=== PATIENT | female | born 1975 | race Caucasian/White ===

== ENCOUNTER 2021-12-15 17:37 | Emergency (ER) | payer OTHER ==
[~2021-12-15] VITALS: Ht 182.9 cm; Wt 135.1 kg
--- NOTE | 2021-12-15 19:22 | PHYS DOC ---
Past History Additional Past Medical Histor: vitamin deficiencies (DAWOOD DE JESUS APRN) Past Surgical History: Cholecystectomy, Hysterectomy, Tonsillectomy, Other Additional Past Surgical Histo: gastric sleeve, 2 (DAWOOD DE JESUS APRN) Alcohol Use: Rarely (DAWOOD DE JESUS APRN) General Adult EDM: Chief Complaint: LOWER EXT PAIN HPI: HPI: Patient is a 46-year-old female who presents to the emergency department today for bilateral burning in her feet and tingling. Patient reports that occasionally her toes will turn purple and it is worse when her feet are in the dependent position. Patient showed me a picture of her toes that were purple at home after she was sitting on them. Patient reports that she has a history of vitamin B12 and vitamin D deficiencies and receives injections. She reports that she receives her injections every 2 weeks but she notices that her symptoms of the burning sensations in her feet start after 1 week after her injections. She states that her primary care provider informed her that she could be experiencing the burning feet due to her B12 deficiency or she may have an autoimmune disorder like Raynaud's and she is currently being worked up by her primary care provider for Raynaud's. Patient presents to the emergency department requesting a B12 injection. Patient denies any decreased sensation in her extremities, chest pain, unilateral leg swelling, shortness of breath. (DAWOOD DE JESUS APRN) HPI: Pt. follows with [facility]. (TYREE MOHR MD) Review of Systems: Review of Systems: Respiratory: See HPI Cardiovascular: See HPI Musculoskeletal: See HPI Integument: See HPI Neurologic: See HPI (DAWOOD DE JESUS APRN) Allergies: Allergies: Allergies Coded Allergies Type Severity Reaction Last Updated Verified Iodinated Contrast Media Allergy Unknown 12/15/21 Yes (DAWOOD DE JESUS APRN) Physical Exam: PE: Constitutional: Well developed, well nourished, no acute distress, non-toxic appearance. [] HENT: Normocephalic, atraumatic, bilateral external ears normal, oropharynx moist, no oral exudates, nose normal. [] Eyes: PERRL, EOMI, conjunctiva normal, no discharge. [] Neck: Normal range of motion, no tenderness, supple, no stridor. [] Cardiovascular:Heart rate regular rhythm, no murmur [] Lungs & Thorax: Bilateral breath sounds clear to auscultation [] Abdomen: Bowel sounds normal, soft, no tenderness, no masses, no pulsatile masses. [] Skin: Warm, dry, no erythema, no rash. [] No discoloration to feet or toes, strong DP pulse Back: No tenderness, normal range of motion Extremities: No tenderness, no cyanosis, no clubbing, ROM intact, no edema. [] Neurologic: Alert and oriented X 3, normal motor function, normal sensory function, no focal deficits noted. [] Psychologic: Affect normal, judgement normal, mood normal. [] (DAWOOD DE JESUS APRN) Current Patient Data: Vital Signs: Vital Signs Date Time Temp Pulse Resp B/P (MAP) Pulse Ox O2 Delivery O2 Flow Rate FiO2 12/15/21 18:04 98.3 94 20 159/99 (119) 97 Room Air (DAWOOD DE JESUS APRN) EKG: EKG: [] (DAWOOD DE JESUS APRN) Radiology/Procedures: Radiology/Procedures: [] (DAWOOD DE JESUS APRN) Radiology/Procedures: [place] [address] IMAGING REPORT Signed PATIENT: BREONNA CACERES RACCOUNT: [id number] : 1975 LOCATION: ER AGE: 46 SEX: F EXAM STATUS: REG ER ORD. PHYSICIAN: DAWOOD DE JESUS APRN REASON: decreased pedal pulses, paresthesia PROCEDURE: DUPLEX ART LOWER EXTR BILAT Bilateral lower extremity arterial duplex Doppler examination with spectral w aveform analysis HISTORY: Decreased pedal pulses and paresthesias Sonographic visualization was performed bilaterally and multiple static images were obtained. There is normal waveform morphology bilaterally. There is no abnormally high velocities. IMPRESSION: Negative examination. Electronically signed by: Nicole Mcgarry III, MD (12/15/2021 11:54 PM) [facility] DICTATED AND SIGNED BY: NICOLE MCGARRY III, MD DATE: 12/15/21 6050 CC: TYREE MOHR MD; DAWOOD DE JESUS APRN; MERVIN JOHNSON ~ (TYREE MOHR MD) Heart Score: C/O Chest Pain: N/A Risk Factors: Risk Factors: DM, Current or recent (<one month) smoker, HTN, HLP, family history of CAD, obesity. Risk Scores: Score 0 - 3: 2.5% MACE over next 6 weeks - Discharge Home Score 4 - 6: 20.3% MACE over next 6 weeks - Admit for Clinical Observation Score 7 - 10: 72.7% MACE over next 6 weeks - Early Invasive Strategies (DAWOOD DE JESUS APRN) Course & Med Decision Making: Course & Med Decision Making Pertinent Labs and Imaging studies reviewed. (See chart for details) [] Patient presents to the emergency department for burning sensation and tingling in her feet and toes. She believes that the sensations are due to her B12 and vitamin D deficiency and is requesting a B12 injection. I informed the patient that we do not do B12 injections in the emergency department and that she will need to follow-up with her primary care provider. Patient states that she was on her way to an injection facility to receive a B12 injection but her parents told her to come to the emergency department instead. Patient states that her parents were concerned that she had decreased sensation in her feet because of the burning and tingling. Informed patient that she had palpable dorsalis pedis pulses but they are weak. She does have cap refill less than 3 seconds. Her pedal pulses were dopplered in the emergency department and no pulses were heard. Patient is ordered a ultrasound of her lower extremities. This is pending at this time 2140 I discussed patients case with supervising physician and he will assume patient care at this time 2150. (DAWOOD DE JESUS APRN) Course & Med Decision Making See [facility] chart for detalis prior shift change. Patient to follow-up with primary care. Further evaluation peripheral neuropathy with EEG and neurology. Impression: 1. Peripheral neuropathy (TYREE MOHR MD) Dragon Disclaimer: Dragon Disclaimer: This electronic medical record was generated, in whole or in part, using a voice recognition dictation system. (DAWOOD DE JESUS APRN) Departure Departure: Impression: Primary Impression: Burning feet syndrome Disposition: HOME / SELF CARE / HOMELESS Condition: GOOD Referrals: MERVIN JOHNSON (PCP) Patient Instructions: Paresthesia Additional Instructions: You were seen in the emergency department today for discoloration, burning and t ingling in your feet and toes. As we discussed, this is likely due to your B12 and vitamin D deficiency. Please follow-up with your primary care provider regarding this and if you require any injections please contact them. Return to the emergency department if you develop chest pain, shortness of breath, high fevers refractory treatment, decreased sensation in your extremities, inability to bear weight or walk or any new or worsening concerns. Dragon Disclaimer This chart was dictated in whole or in part using Voice Recognition software in a busy, high-work load, and often noisy Emergency Department environment. It may contain unintended and wholly unrecognized errors or omissions. (TYREE MOHR MD) Dragon Disclaimer This chart was dictated in whole or in part using Voice Recognition software in a busy, high-work load, and often noisy Emergency Department environment. It may contain unintended and wholly unrecognized errors or omissions. (TYREE MOHR MD) Attending Signature Attending Signature I have participated in the care of this patient and I have reviewed and agree with all pertinent clinical information above including history, exam, and recommendations. (TYREE MOHR MD) DAWOOD DE JESUS D[employer]ING ROOM MAID December 15, 2021 19:22 TYREE MOHR MD December 15, 2021 23:40
[2021-12-15] MEDS ORDERED: KETOROLAC 60 MG/2 ML VIAL. IM ONE (23:00)
--- NOTE | 2021-12-15 23:56 | RAD ---
Bilateral lower extremity arterial duplex Doppler examination with spectral waveform analysis HISTORY: Decreased pedal pulses and paresthesias Sonographic visualization was performed bilaterally and multiple static images were obtained. There is normal waveform morphology bilaterally. There is no abnormally high velocities. IMPRESSION: Negative examination. Electronically signed by: Diego uLi III, MD (12/15/2021 11:54 PM) [facility]
[2021-12-16 00:14] VITALS: BP 145/95
== END 2021-12-16 00:42 | disposition home or self-care (01) ==
LOC: ER 17:37
DX: E53.0 Riboflavin deficiency (principal); G62.9 Polyneuropathy, unspecified; Z91.041 Radiographic dye allergy status
CPT/HCPCS: 93925; 99284